=== PATIENT | female | born 1985 | race Hispanic/Latino ===

== ENCOUNTER 2021-02-04 20:44 | Observation (INO) | payer OTHER ==
[2021-02-04] MEDS ORDERED: Morphine 4 MG/ML VIAL ONE (21:09)
[2021-02-04] MEDS ORDERED: Ondansetron PF 4 MG/2 ML Vial ONE (21:09)
[2021-02-04 21:19] LABS: #Basophils 0.1 thou/uL (0.0-0.2); #Eosinphils 0.1 thou/uL (0.0-0.7); #Lymphocytes 2.9 thou/uL (1.20-3.40); #Monocytes 0.4 thou/uL (0.11-0.59); #Neutrophils 3.1 thou/uL (1.40-6.50); %Basophils 1.5 % (0.0-1.0); %Lymphocytes 43.4 % (21.0-51.0); %Monocytes 6.3 % (0.0-10.0); %Neutrophils 46.9 % (42.0-75.0); Hemoglobin 14.8 g/dL (12.0-16.0); Mean Corpuscular HGB CONC 35.6 g/dL (32.0-36.0); Mean Corpuscular Volume 92.7 fL (78.0-98.0); Mean Platelet Volume 7.1 fL (7.4-10.4); Platelet Count 323 thou/uL (130-400); RBC Distribution Width 11.1 % (11.5-14.5); Red Blood Cell (RBC) Count 4.48 mill/uL (4.20-5.40); White Blood Cell (WBC) Count 6.6 thou/uL (4.8-10.8)
[2021-02-04 21:39] LABS: ALT (SGPT) 45 U/L (8-55); AST (SGOT) 23 U/L (5-34); Albumin 4.8 g/dL (3.5-5.0); Alkaline Phosphatase 103 U/L (40-110); Anion Gap 14 mmol/L (10-20); BUN (Urea Nitrogen) 14 mg/dL (7.0-18.7); Bilirubin, Total 0.3 mg/dL (0.2-1.2); Calc. Creatinine Clearance 0 mL/min (70-130); Calcium 10.2 mg/dL (7.8-10.44); Carbon Dioxide 23 mmol/L (22-29); Chloride 106 mmol/L (98-107); Globulin 3.3 g/dL (2.4-3.5); Glucose 91 mg/dL (70-105); Lipase 23 U/L (8-78); Potassium 3.7 mmol/L (3.5-5.1); Protein, Total 8.1 g/dL (6.0-8.3); Sodium 139 mmol/L (136-145)
[2021-02-04 22:28] LABS: BHCG - Serum Negative (NEGATIVE); Pregs Control Background? CLEAR/WHITE (CLR/WHITE); Pregs Control Bar Appear? YES (CONTROL BAR)
[2021-02-04 22:45] LABS: Bacteria/HPF 2+ HPF (None Seen); Bilirubin Negative (Negative); Blood, Urine Negative (Negative); Clarity Turbid (Clear); Glucose, Urine (Dipstick) Normal (Negative); Ketone, Urine Trace mg/dL (Negative); Leukocyte 250 Leu/uL (Negative); Nitrite 1+ (Negative); Protein, Urine (Dipstick) Negative (Neg-Trace); RBC/HPF 0-3 HPF (0-3); Specific Gravity, Urine 1.019 (1.002-1.036); Urobilinogen Normal mg/dL (Less than 2); WBC/HPF 21-50 HPF (0-3)
[2021-02-04 22:46] LABS: Pregnancy Test - Urine (BHCG) Negative (Negative); Pregu Control Background? CLEAR/WHITE (CLR/WHITE); Pregu Control Bar Appear? YES (CONTROL BAR); Specific Gravity 1.019 (1.002-1.036)
[2021-02-04] MEDS ORDERED: Piperacillin/Tazobactam 3.375 GM VIAL ONE (22:54)
[2021-02-04 23:44] VITALS: BMI 24.4
[2021-02-04] MEDS: Lactated Ringer's 1,000 ML IV SCH (23:53)
[2021-02-05] MEDS: Morphine 4 MG/ML VIAL SLOW IVP PRN ×2 (01:15→08:04)
[2021-02-05] MEDS ORDERED: Piperacillin/Tazobactam 3.375 GM in Sodium Chloride 0.9% 100 ML IVPB SCH (03:00)
[2021-02-05] MEDS: Ondansetron PF 4 MG/2 ML Vial IVP PRN ×2 (03:54→09:36)
[2021-02-05] MEDS ORDERED: Digoxin 0.5 MG/2 ML AMP ONE (05:58)
[2021-02-05] MEDS: Lactated Ringer's 1,000 ML IV SCH (08:10)
[2021-02-05] MEDS ORDERED: Lactated Ringer's 1,000 ML IV SCH (08:15)
[2021-02-05] MEDS ORDERED: Ketorolac Tromethamine 30 MG/ML VIAL IVP SCH (08:15)
[2021-02-05] MEDS ORDERED: Scopolamine 1.5 mg/72 hour Patch ONE (12:19)
[2021-02-05] MEDS ORDERED: SUGAMMADEX SODIUM 200 MG/2 ML VIAL ONE (13:02)
[2021-02-05] MEDS ORDERED: Fentanyl 100 MCG/2 ML VIAL ONE ×2 (13:02→15:00)
[2021-02-05] MEDS ORDERED: Midazolam HCl 2 mg/2 ml Vial ONE (13:02)
[2021-02-05] MEDS ORDERED: Lidocaine 1% w/Epinephrine 1:100K 20 ML VIAL ONE (13:09)
[2021-02-05] MEDS ORDERED: Bupivacaine PF 0.5% 30 ML VIAL ONE (13:09)
[2021-02-05] MEDS ORDERED: Acetaminophen 500 MG TAB PO PRN (13:15)
[2021-02-05] MEDS ORDERED: Acetaminophen 500 MG TAB PO SCH (13:15)
[2021-02-05] MEDS ORDERED: traMADol HCl 50 MG TAB PO PRN (13:15)
[2021-02-05] MEDS ORDERED: ALPRAZolam 0.25 MG TAB PO PRN (13:18)
[2021-02-05] MEDS ORDERED: Dexamethasone 20 MG/5 ML VIAL ONE (13:28)
[2021-02-05] MEDS ORDERED: Rocuronium Bromide 10 MG/ML (10ML VIAL) ONE (13:28)
[2021-02-05] MEDS ORDERED: Phenylephrine 10 MG/ML VIAL ONE (13:28)
[2021-02-05] MEDS ORDERED: Lidocaine 1% PF 5 ML VIAL ONE (13:28)
[2021-02-05] MEDS ORDERED: Ondansetron PF 4 MG/2 ML Vial ONE (13:28)
[2021-02-05] MEDS ORDERED: PROPOFOL 200 MG/20 ML VIAL ONE (13:28)
[2021-02-05] MEDS ORDERED: Ketorolac Tromethamine 30 MG/ML VIAL IVP PRN (14:00)
[2021-02-05] MEDS ORDERED: Promethazine HCl 25 MG/ML VIAL IVPB PRN (14:13)
[2021-02-05] MEDS ORDERED: Meperidine HCl/PF 25 MG/ML VIAL SLOW IVP PRN (14:13)
[2021-02-05] MEDS ORDERED: Ondansetron HCl/PF 4 MG/2 ML Vial IVP PRN (14:13)
[2021-02-05] MEDS ORDERED: Morphine Sulfate 2 MG/ML SYRINGE SLOW IVP PRN (14:13)
[2021-02-05] MEDS ORDERED: HYDROmorphone 2 MG/ML VIAL SLOW IVP PRN (14:13)
[2021-02-05] MEDS ORDERED: Promethazine HCl 25 MG/ML VIAL IM PRN (14:13)
[2021-02-05] MEDS ORDERED: Morphine 4 MG/ML VIAL ONE (14:34)
[2021-02-05] MEDS ORDERED: Promethazine HCl 25 MG/ML VIAL ONE (14:34)
[2021-02-05 15:54] VITALS: BP 126/83; TEMP 97.9
[2021-02-05] MEDS ORDERED: Ondansetron PF 4 MG/2 ML Vial IVP PRN (18:07)
[2021-02-05] MEDS ORDERED: Ondansetron ODT 8 MG TAB SL PRN (18:07)
[2021-02-05] MEDS ORDERED: Ondansetron ORAL SOLN. 4 MG/5 ML UDCUP PO PRN (18:07)
[2021-02-10] MEDS ORDERED: Ibuprofen 600 MG TAB PO PRN (13:15)
== END 2021-02-05 19:10 | disposition home or self-care (01) ==
LOC: ERS 20:44 → SURG A 22:06
PROVIDERS: ADMIT Specialist; ATTEND Specialist
PROC: 0FT44ZZ Resection of Gallbladder, Percutaneous Endoscopic Approach (ICD-10-PCS; principal; 2021-02-05)
DX: K80.12 Calculus of gallbladder with acute and chronic cholecystitis without obstruction (principal)
CPT/HCPCS: 76705; 80053; 81003; 81015; 81025; 83690; 84703; 85025; 88304; 96365; 96367; 96375; 96376; C1713; G0378; J1100; J1885; J1956; J2250; J2270; J2370; J2405; J2543; J2550; J2704; J3010; J3490; J7120; S0020